=== PATIENT | female | born 1985 | race Caucasian/White ===

== ENCOUNTER 2017-08-23 21:03 | Emergency (ER) | payer SELFPAY, MEDICAID | END 2017-08-23 21:49 | disposition left against medical advice (07) | LOC: FTE 21:03 | DX: Z53.21 Procedure and treatment not carried out due to patient leaving prior to being seen by health care provider (principal) ==

== ENCOUNTER 2018-03-11 10:17 | Emergency (ER) | payer MEDICAID ==
[2018-03-11 11:02] LABS: URINE BLOOD (Dip) POC Trace-intact (NEGATIVE); URINE GLUCOSE (Dip) POC Negative (NEGATIVE); URINE KETONES (Dip) POC Negative (NEGATIVE); URINE LEUKOCYTE EST (Dip) POC Negative (NEGATIVE); URINE NITRITE (Dip) POC Negative (NEGATIVE); URINE TOTAL PROTEIN POC Negative (NEGATIVE)
[2018-03-11] MEDS: CIPROFLOXACIN 250 MG TAB PO (11:22)
[2018-03-11] MEDS: PHENAZOPYRIDINE 100 MG TAB PO (11:22)
== END 2018-03-11 11:29 | disposition home or self-care (01) ==
LOC: FTE 10:17
DX: N39.0 Urinary tract infection, site not specified (principal); N76.0 Acute vaginitis; R10.2 Pelvic and perineal pain
CPT/HCPCS: 81003; 81025; 99283